=== PATIENT | female | born 1950 | race Caucasian/White ===

== ENCOUNTER → 2020-09-20 11:30 | Outpatient (BNVA) | payer OTHER, SELFPAY | PROVIDERS: Family Provider Internal Medicine; Visit Provider Nurse Practitioner Family | DX: Z20.828 Contact with and (suspected) exposure to other viral communicable diseases (principal) | CPT/HCPCS: 87635 ==

== ENCOUNTER 2022-01-12 13:59 | Outpatient (CLI) | payer MEDICARE, SELFPAY ==
--- NOTE | 2022-01-12 14:14 | CT_ITS ---
WS: [id number] CT ABDOMEN PELVIS TECHNIQUE: Contrast-enhanced CT of the abdomen and pelvis with coronal and sagittal reformatted image s. CLINICAL INFORMATION: ABD PAIN, LLQ COMPARISON: CT 2006 DLP: 884.[address] scans at [facility] use at least one of these dose optimization techniques: automated e xposure control; mA and/or kV adjustment per patient size (includes targeted exams where dose is matc hed to clinical indication); or iterative reconstruction. FINDINGS: Sigmoid diverticulosis. Inflammatory stranding with edema and sigmoid colon thickening in the LEFT lo wer quadrant compatible with acute diverticulitis. No focal drainable abscess or fluid collection. Re commend follow-up to resolution. No evidence of bowel obstruction. Lung bases are well aerated. Normal liver. Normal gallbladder. Normal spleen. Splenic granulomas. Sma ll esophageal hiatal hernia. Normal pancreatic parenchymal enhancement. Vascular calcification. Nydia l caliber abdominal aorta. Mild diffuse bladder wall thickening. Recommend correlation for cystitis. Mild induration in the surr ounding bladder soft tissues. Adrenal glands are normal. Normal renal parenchymal enhancement. LEFT r enal cyst measuring 5.0 x 4.6 CM. Small esophageal hiatal hernia. Mild chronic anterior wedging L2 ve rtebral body. CT/CT abdomen pelvis w con* [id number] IMPRESSION: 1. Inflammatory stranding with sigmoid colon thickening in the LEFT lower quad rant compatible with acute diverticulitis. No evidence of drainable abscess or fluid collection. Recommend follow-up to resolution. 2. Mild diffuse bladder wall thickening with slight surrounding induration. Co rrelation for cystitis/UTI. Bladder is contracted. 3. Small esophageal hiatal hernia. 4. No hydronephrosis in either kidney. 5. LEFT renal cyst measuring 4.6 x 5.0 CM. 6. Normal caliber abdominal aorta. 7. Mild chronic anterior wedging at L2. Attempted notification DANIEL Slater at 01/12/2022 3:40 PM.
[2022-01-12 15:09] LABS: Blood Urea Nitrogen 25 mg/dL (8-23); Glomerular Filtration Rate 71.1 mL/min (90-130)
[2022-01-12] MEDS: iohexol 300 mg/mL 100 mL Btl IV (15:19)
== END 2022-01-12 14:00 | disposition home or self-care (01) ==
PROVIDERS: PCP Family Medicine; Visit Provider Nurse Practitioner Family
DX: K44.9 Diaphragmatic hernia without obstruction or gangrene (principal); N28.1 Cyst of kidney, acquired; M48.56XA Collapsed vertebra, not elsewhere classified, lumbar region, initial encounter for fracture
CPT/HCPCS: 74177; 82565; 84520

== ENCOUNTER → 2022-07-21 11:38 | Outpatient (BNVA) | payer MEDICARE, SELFPAY | PROVIDERS: PCP Family Medicine; Visit Provider Family Medicine | DX: L98.9 Disorder of the skin and subcutaneous tissue, unspecified (principal) | CPT/HCPCS: 88304 ==

== ENCOUNTER 2023-08-10 09:19 | Outpatient (CLI) | payer MEDICARE, SELFPAY ==
--- NOTE | 2023-08-10 06:20 | MM_ITS ---
WS: [id number] BILATERAL SCREENING DIGITAL TOMOSYNTHESIS MAMMOGRAM WITH CAD HISTORY: Z00.00 - Encounter for general adult medical examination ... COMPARISON: 07/19/2017 and 09/09/2013 Bilateral CC and MLO views with tomosynthesis and synthetic mammography submitted. Computer aided det ection analyzed. Breast composition: There are scattered areas of fibroglandular density. No suspicious masses, microc alcifications or architectural distortion. Benign calcifications in each breast. IMPRESSION: MM/[place] [id number] BI-RADS: 2-Benign FOLLOW UP: 1 Year Follow-up
== END 2023-08-10 09:20 | disposition home or self-care (01) ==
LOC: MOBLMAM 09:27
PROVIDERS: PCP Family Medicine; Visit Provider Family Medicine
DX: Z12.31 Encounter for screening mammogram for malignant neoplasm of breast (principal)
CPT/HCPCS: 77063; 77067

== ENCOUNTER 2024-04-18 13:25 | Outpatient (CLI) | payer MEDICARE, SELFPAY ==
--- NOTE | 2024-04-18 14:00 | XR_ITS ---
WS: [id number] SCREENING DEXA SCAN [place] CLINICAL INFORMATION: S32.000A - Wedge compression fracture of unspecified lumb... COMPARISON: None. FINDINGS: The L1-L4 bone mineral density measures 0.943 g/cm2. This corresponds to a T score score of -2.0 and Z score of -0.3. Left femoral neck bone mineral density measures 0.751 g/cm2. This corresponds to a T score of -2.0 an d Z score of -0.5. Right femoral neck bone mineral density measures 0.742 g/cm2. This corresponds to a T score -2.1of an d Z score of -0.5. Mean femoral neck bone mineral density measures 0.747 g/cm2. This corresponds to a T score of -2.1 an d Z score of -0.5. XR/XR DEXA axial skeleton* [id number] IMPRESSION: Osteopenia lumbar spine. Osteopenia femoral necks. Patient's FRAX calculated 10 year probability for major osteoporotic fracture i s 23.4% and osteoporotic hip fracture is 6.2%.
== END 2024-04-18 13:26 | disposition home or self-care (01) ==
LOC: RAD 13:25
PROVIDERS: PCP Family Medicine; Visit Provider Family Medicine
DX: S32.000A Wedge compression fracture of unspecified lumbar vertebra, initial encounter for closed fracture (principal); M85.89 Other specified disorders of bone density and structure, multiple sites; X58.XXXA Exposure to other specified factors, initial encounter
CPT/HCPCS: 77080

== ENCOUNTER 2024-04-28 06:00 | Outpatient (RCR) | payer MEDICARE, SELFPAY | END 2024-05-04 23:59 | disposition home or self-care (01) | LOC: APT 06:00 | PROVIDERS: Visit Provider Family Medicine | DX: S32.000D Wedge compression fracture of unspecified lumbar vertebra, subsequent encounter for fracture with routine healing (principal); X58.XXXD Exposure to other specified factors, subsequent encounter | CPT/HCPCS: 97110; 97112; 97161 ==

== ENCOUNTER 2024-05-05 06:00 | Outpatient (RCR) | payer MEDICARE, SELFPAY | END 2024-06-04 23:59 | disposition home or self-care (01) | LOC: APT 06:00 | PROVIDERS: Visit Provider Family Medicine | DX: S32.000D Wedge compression fracture of unspecified lumbar vertebra, subsequent encounter for fracture with routine healing (principal); X58.XXXD Exposure to other specified factors, subsequent encounter | CPT/HCPCS: 97110; 97112; 97530 ==

== ENCOUNTER → 2024-06-24 13:24 | Outpatient (BNVA) | payer MEDICARE, SELFPAY | PROVIDERS: PCP Family Medicine; Visit Provider Family Medicine | DX: E03.9 Hypothyroidism, unspecified (principal); F32.A Depression, unspecified; R45.0 Nervousness; R53.83 Other fatigue | CPT/HCPCS: 80053; 82607; 84443; 85025 ==

== ENCOUNTER 2024-07-22 13:48 | Outpatient (CLI) | payer MEDICARE, SELFPAY ==
--- NOTE | 2024-07-22 13:58 | XRR_ITS ---
PROCEDURE INFORMATION: Exam: XR Right Hip Exam date and time: 07/22/2024 2:05 PM Age: 74 years old Clinical indication: Injury or trauma; Fall; Blunt trauma (contusions or hematomas); Right; Injury date: 03/2024; Injury details: Fell back in March with compression fractures in the lower spine. Pain is not radiating through the RT hip. ; Additional info: Intractable hip pain TECHNIQUE: Imaging protocol: Radiologic exam of the right hip. Views: 1 view hip with pelvis when performed. COMPARISON: CT abdomen pelvis w con* [id number] 01/12/2022 3:09 PM FINDINGS: Bones/joints: Mild articular surface narrowing and spurring. No fracture or dislocation. No acute osseous, joint, or soft tissue abnormality.. No acute fracture. Soft tissues: Unremarkable. XR/XR hip RT 2-3V wo/w pel* [id number] IMPRESSION: Mild degenerative changes .
== END 2024-07-22 13:49 | disposition home or self-care (01) ==
PROVIDERS: PCP Family Medicine; Visit Provider Family Medicine
DX: M25.559 Pain in unspecified hip (principal); M85.80 Other specified disorders of bone density and structure, unspecified site
CPT/HCPCS: 73502

== ENCOUNTER 2024-08-12 13:38 | Outpatient (CLI) | payer MEDICARE, SELFPAY ==
--- NOTE | 2024-08-12 13:40 | MM_ITS ---
WS: [id number] BILATERAL 3D TOMOSYNTHESIS DIGITAL SCREENING MAMMOGRAPHY WITH CAD CLINICAL INFORMATION: SCREENING HISTORY: Screening mammogram. No current complaints. COMPARISON: 2022 TECHNIQUE: Bilateral CC and MLO views. FINDINGS: The breasts are composed of heterogeneous fibroglandular density tissue, which can limit the detectio n of small underlying mass lesions. No suspicious mass, asymmetry, calcifications, or architectural d istortion. No evidence of malignancy. Incidental punctate and lucent centered calcifications. MM/MM [facility] tomosynthesis [id number] IMPRESSION: DENSITY: The breasts are heterogeneously dense, which may obscure small masses. BI-RADS: 2 - Benign FOLLOW UP: 1 Year Follow-up Recommend return to annual screening mammography.
== END 2024-08-12 13:39 | disposition home or self-care (01) ==
LOC: MOBLMAM 13:43
PROVIDERS: PCP Family Medicine; Visit Provider Family Medicine
DX: Z12.31 Encounter for screening mammogram for malignant neoplasm of breast (principal)
CPT/HCPCS: 77063; 77067

== ENCOUNTER 2024-10-15 06:00 | Outpatient (RCR) | payer MEDICARE, SELFPAY | END 2024-11-04 23:59 | disposition home or self-care (01) | LOC: APT 06:00 | PROVIDERS: Visit Provider Registered Nurse | DX: M54.16 Radiculopathy, lumbar region (principal) | CPT/HCPCS: 97110; 97161; 97530 ==

== ENCOUNTER 2024-11-05 06:30 | Outpatient (RCR) | payer SELFPAY | END 2024-12-05 23:59 | disposition home or self-care (01) | LOC: APT 06:30 | PROVIDERS: Visit Provider Registered Nurse | DX: M54.16 Radiculopathy, lumbar region (principal) | CPT/HCPCS: 97110; 97112; 97164; 97530 ==

== ENCOUNTER 2024-12-06 06:30 | Outpatient (RCR) | payer MEDICARE, SELFPAY | END 2025-01-02 23:59 | disposition home or self-care (01) | LOC: APT 06:30 | PROVIDERS: PCP Family Medicine; Visit Provider Registered Nurse | DX: M54.16 Radiculopathy, lumbar region (principal) | CPT/HCPCS: 97110; 97112; 97530 ==

== ENCOUNTER → 2024-12-11 12:21 | Outpatient (BNVA) | payer MEDICARE, SELFPAY | PROVIDERS: PCP Family Medicine; Visit Provider Family Medicine | DX: R09.02 Hypoxemia (principal); R06.00 Dyspnea, unspecified; R53.83 Other fatigue; E03.9 Hypothyroidism, unspecified | CPT/HCPCS: 80053; 82607; 84443; 85025 ==

== ENCOUNTER → 2024-12-15 09:55 | Outpatient (BNVA) | payer MEDICARE, SELFPAY | PROVIDERS: PCP Family Medicine; Visit Provider Family Medicine | DX: R09.02 Hypoxemia (principal); R06.00 Dyspnea, unspecified; R53.83 Other fatigue | CPT/HCPCS: 71046 ==

== ENCOUNTER 2025-01-14 10:58 | Outpatient (CLI) | payer MEDICARE, MEDICAID, SELFPAY ==
[2025-01-14 11:13] VITALS: PULSE 67; RESP 18; O2SAT 96
[2025-01-14] MEDS: albuterol 2.5 mg/3 mL Neb INHALATION (11:13)
--- NOTE | 2025-01-14 15:00 | CTR_ITS ---
PROCEDURE INFORMATION: Exam: CT Chest With Contrast; Diagnostic Exam date and time: 01/14/2025 3:37 PM Age: 74 years old Clinical indication: Shortness of breath; Additional info: Hypoxia, weakness, cxr follow up TECHNIQUE: Imaging protocol: Diagnostic computed tomography of the chest with contrast. Radiation optimization: All CT scans at this facility use at least one of these dose optimization techniques: automated exposure control; mA and/or kV adjustment per patient size (includes targeted exams where dose is matched to clinical indication); or iterative reconstruction. Contrast material: OMNI 350; Contrast volume: 100 ml; Contrast route: INTRAVENOUS (IV); COMPARISON: CR XR chest 2V* [id number] 12/15/2024 9:53 AM RADIATION DOSE METRICS: Total DLP (mGy-cm): 290.14 FINDINGS: Lungs: Mild emphysema. Focal ground-glass opacity in the posterior segment of the right upper lobe. Two punctate nodules are mucous plugs in the periphery of the right lower lobe. More central right lower lobe mucous plug. Focal ground-glass opacity in the right lower lobe anteriorly. Discoid atelectasis versus scar in the lingula and left upper lobe. Subtle ground-glass opacity in the left superior segment. Focal ground-glass opacity in the apicoposterior segment of the left upper lobe abutting the major fissure. Pleural spaces: Unremarkable. No pneumothorax. No pleural effusion. Heart: Unremarkable. No cardiomegaly. No pericardial effusion. Lymph nodes: Unremarkable. No enlarged lymph nodes. Vasculature: Unremarkable. No aortic aneurysm. Spleen: A few calcifications are seen in the spleen consistent with old granulomatous disease. Bones/joints: [id number] compression fracture of the T9 vertebral body with upper body sclerosis. This may be acute to subacute. Soft tissues: Unremarkable. CT/CT chest w con* [id number] IMPRESSION: 1. A few nonspecific ground-glass opacities are seen in the lungs bilaterally. Mild emphysema. 2. Discoid atelectasis or scarring in the left lung. 3. T9 vertebral body compression fracture as described. COMMENTS: The presence of pulmonary emphysema on CT is an independent risk factor for lung cancer. In the absence of a history or active diagnosis of lung cancer, it is recommended that this patient with emphysema be evaluated for enrollment in a low dose CT lung cancer screening program.
[2025-01-14] MEDS: iohexol 350 mg/mL 500 mL Btl (per mL) IV (15:58)
== END 2025-01-14 10:59 | disposition home or self-care (01) ==
PROVIDERS: PCP Family Medicine; Visit Provider Family Medicine
DX: R09.02 Hypoxemia (principal); R06.00 Dyspnea, unspecified; R53.83 Other fatigue; J98.8 Other specified respiratory disorders; R94.2 Abnormal results of pulmonary function studies; R91.8 Other nonspecific abnormal finding of lung field; J43.9 Emphysema, unspecified; M48.54XA Collapsed vertebra, not elsewhere classified, thoracic region, initial encounter for fracture; D73.89 Other diseases of spleen
CPT/HCPCS: 71260; 94060; 94729; J7613

== ENCOUNTER → 2025-01-26 09:51 | Outpatient (BNVA) | payer MEDICARE, MEDICAID, SELFPAY | PROVIDERS: PCP Family Medicine; Visit Provider Family Medicine | DX: J44.9 Chronic obstructive pulmonary disease, unspecified (principal); R09.02 Hypoxemia; R06.00 Dyspnea, unspecified | CPT/HCPCS: 82103 ==

== ENCOUNTER → 2025-05-04 11:09 | Outpatient (BNVA) | payer MEDICARE, MEDICAID, SELFPAY | PROVIDERS: PCP Family Medicine; Visit Provider Family Medicine | DX: R60.9 Edema, unspecified (principal); R53.83 Other fatigue; E03.9 Hypothyroidism, unspecified | CPT/HCPCS: 80053; 82607; 84443; 85025 ==

== ENCOUNTER → 2025-05-19 08:51 | Outpatient (BNVA) | payer MEDICARE, MEDICAID, SELFPAY | PROVIDERS: PCP Family Medicine; Visit Provider Family Medicine | DX: R60.9 Edema, unspecified (principal) | CPT/HCPCS: 80048 ==

== ENCOUNTER → 2025-11-04 12:48 | Outpatient (BNVA) | payer MEDICARE, MEDICAID, SELFPAY | PROVIDERS: PCP Family Medicine; Visit Provider Clinical Nurse Specialist Adult Health | DX: R11.2 Nausea with vomiting, unspecified (principal) | CPT/HCPCS: 85025; 86003; 86008 ==